=== PATIENT | female | born 1995 | race Caucasian/White ===

== ENCOUNTER 2017-07-18 14:49 | Emergency (ER) | payer OTHER ==
[~2017-07-18] VITALS: Ht 167.6 cm; Wt 62.4 kg
[2017-07-18 15:00] VITALS: TEMP 37.1; Ht 167.6 cm; Wt 62.4 kg
[2017-07-18] MEDS ORDERED: ONDANSETRON INJ 2 MG/ML 2 ML VIAL IV STA (15:17)
[2017-07-18] MEDS ORDERED: SODIUM CHLORIDE 0.9% 1000ML 2,000 ML IV STA (15:17)
[2017-07-18 15:54] LABS: BASO % 0.3 %; BASO ABS # 0.06 K/uL (0-0.2); EOS % 0.9 %; EOS ABS # 0.16 K/uL (0-0.5); HEMATOCRIT 35.1 % (37-47); HEMOGLOBIN 11.1 g/dL (12.0-16.0); IG# 0.06 K/uL (0.00-0.02); LYMPH % 17.4 %; LYMPH ABS # 3.18 K/uL (1.2-3.4); MEAN CELL VOLUME 74.8 fL (80-100); MEAN CORPUSCULAR HEMOGLOBIN 23.7 pg (25-34); MEAN CORPUSCULAR HGB CONC 31.6 g/dl (32-36); MEAN PLATELET VOLUME 10.1 fL (7.4-10.4); MONO % 3.2 %; MONO ABS # 0.59 K/uL (0.11-0.59); NEUT % 77.9 %; NEUT ABS # 14.18 K/uL (1.4-6.5); PLATELET COUNT 334 K/uL (130-400); RED CELL DISTRIBUTION WIDTH CV 14.1 % (11.5-14.5); RED CELL DISTRIBUTION WIDTH SD 38.3 fL (36.4-46.3); WHITE BLOOD COUNT 18.23 K/uL (4.8-10.8)
[2017-07-18] MEDS ORDERED: VNTHFA/IN INH (15:55)
[2017-07-18] MEDS ORDERED: QVRINH40 INH (15:55)
[2017-07-18] MEDS ORDERED: BCPILLS PO (15:55)
[2017-07-18 16:07] LABS: ALBUMIN 4.1 gm/dl (3.4-5.0); CALCIUM 9.5 mg/dl (8.5-10.1); CREATININE 0.81 mg/dl (0.60-1.20); POTASSIUM 3.5 mmol/L (3.5-5.1)
[2017-07-18 16:10] LABS: TOTAL PROTEIN 7.5 gm/dl (6.4-8.2)
[2017-07-18 16:36] VITALS: BP 108/56; PULSE 88; O2SAT 99
[2017-07-18] MEDS ORDERED: ONDA4TAB10 SL (18:03)
--- NOTE | 2017-07-18 18:03 | EMERGENCY ROOM VISIT NOTE ---
History First contact with patient: 15:03 Chief Complaint: VOMITING Stated Complaint: VOMITING, STOMACH PAIN, DEHYDRATED History of Present Illness Patient is a 22-year-old white female who presents emergency department accompanied by her female roommate for evaluation of nausea and vomiting 24 hours. Patient states that she woke up yesterday, was nauseous and vomited multiple times between 10 AM and 4 PM. She states that she woke up from a nap and felt better. She felt well enough to go to a friend's birthday green party last evening where she was able to eat and does admit to drinking some alcohol. She came home and went to bed and woke up at 2:00 this morning acutely vomiting. She has been multiple episodes of clear, watery emesis. She cannot quantify how many times she has thrown up but reports now that she is just dry heaving. She tried sipping on water but was unable to keep it down. She has very slight mid abdominal pain that she rates a 1/10. She has not had any diarrhea. She has cold sweats with waves of nausea but does not feel feverish. She denies any hematemesis. No urinary symptoms. She is on oral contraceptives and her last menstrual period was last week. She traveled to [place] for spring, no recent foreign travel, no antibiotic use recently. She denies any unusual food or water consumption. No sick contacts. Review of Systems Review of systems as per HPI. All other systems reviewed were negative. 10 systems reviewed. Past Medical/Surgical History Medical Problems: (1) Asthma Electronic medical records are reviewed and summarized as above/below. See Problem List. Supplemental history completed by the patient was also reviewed. Social History Smoking Status: Never Smoker Alcohol Use: occasionally Housing Status: lives with roommate Occupation Status: [employer] student Current/Historical Medications Scheduled Beclomethasone Dip (Qvar), 2 PUFF INH DAILY Control Pills ( Control Pills), 1 TAB PO DAILY Scheduled PRN Albuterol Hfa (Ventolin Hfa), 2 PUFFS INH Q6H PRN for BEFORE EXERCISE Ondasetron Odt (Zofran Odt), 4 MG SL Q4 PRN for Nausea or Vomiting Physical Exam Vital Signs Date Time Temp Pulse Resp B/P (MAP) Pulse Ox O2 Delivery O2 Flow Rate FiO2 07/18/17 16:36 88 18 108/56 99 Room Air 07/18/17 15:00 37.1 78 18 118/73 98 Room Air Physical Exam CONSTITUTIONAL: Patient is a pleasant, well-appearing 22-year-old white female who is awake and alert and in no acute distress. EYES: Pupils equal, round, reactive to light and accommodation. EOMs intact without nystagmus. Sclera are anicteric. ENT: Tympanic membranes intact, with normal landmarks. External canals are clear. Oral and nasopharynx are clear. Mucous membranes are moist, no lesions , tongue and gums appear normal. NECK: Supple without lymphadenopathy. No thyromegaly. No meningeal signs. Full active range of motion without discomfort. CARDIOVASCULAR: Regular rate and rhythm, with normal S1 and S2, no murmur or gallop or rub is heard. No carotid bruits auscultated. No JVD. Peripheral pulses easily palpable. RESPIRATORY: Breath sounds equal and clear to auscultation without wheezes, rales, or rhonchi heard. Full and equal chest expansion without accessory muscle use or retractions. ABDOMEN: Bowel sounds are present. Abdomen is soft, scaphoid, mildly tender in the epigastric region to palpation. There is no guarding, rebound or rigidity. There is no pain in the right lower quadrant over McBurney's point. INTEGUMENTARY: No lesions or rash, normal skin turgor. LYMPH: No lymphadenopathy. Medical Decision & Procedures Laboratory Results 07/18/17 15:20 Red Blood Count 4.69, Mean Corpuscular Volume 74.8, Mean Corpuscular Hemoglobin 23.7, Mean Corpuscular Hemoglobin Concent 31.6, Mean Platelet Volume 10.1, Neutrophils (%) (Auto) 77.9, Lymphocytes (%) (Auto) 17.4, Monocytes (%) (Auto) 3.2, Eosinophils (%) (Auto) 0.9, Basophils (%) (Auto) 0.3, Neutrophils # (Auto) 14.18, Lymphocytes # (Auto) 3.18, Monocytes # (Auto) 0.59, Eosinophils # (Auto) 0.16, Basophils # (Auto) 0.06 07/18/17 15:20 Test 07/18/17 15:20 White Blood Count 18.23 K/uL (4.8-10.8) Red Blood Count 4.69 M/uL (4.2-5.4) Hemoglobin 11.1 g/dL (12.0-16.0) Hematocrit 35.1 % (37-47) Mean Corpuscular Volume 74.8 fL (80-100) Mean Corpuscular Hemoglobin 23.7 pg (25-34) Mean Corpuscular Hemoglobin Concent 31.6 g/dl (32-36) Platelet Count 334 K/uL (130-400) Mean Platelet Volume 10.1 fL (7.4-10.4) Neutrophils (%) (Auto) 77.9 % Lymphocytes (%) (Auto) 17.4 % Monocytes (%) (Auto) 3.2 % Eosinophils (%) (Auto) 0.9 % Basophils (%) (Auto) 0.3 % Neutrophils # (Auto) 14.18 K/uL (1.4-6.5) Lymphocytes # (Auto) 3.18 K/uL (1.2-3.4) Monocytes # (Auto) 0.59 K/uL (0.11-0.59) Eosinophils # (Auto) 0.16 K/uL (0-0.5) Basophils # (Auto) 0.06 K/uL (0-0.2) RDW Standard Deviation 38.3 fL (36.4-46.3) RDW Coefficient of Variation 14.1 % (11.5-14.5) Immature Granulocyte % (Auto) 0.3 % Immature Granulocyte # (Auto) 0.06 K/uL (0.00-0.02) Hypochromasia PRESENT Ovalocytes 1+ Anion Gap 10.0 mmol/L (3-11) Est Creatinine Clear Calc Drug Dose 102.8 ml/min Estimated GFR () 120.3 Estimated GFR (Non- 103.8 BUN/Creatinine Ratio 17.4 (10-20) Calcium Level 9.5 mg/dl (8.5-10.1) Total Bilirubin 0.6 mg/dl (0.2-1) Aspartate Amino Transf (AST/SGOT) 16 U/L (15-37) Alanine Aminotransferase (ALT/SGPT) 18 U/L (12-78) Alkaline Phosphatase 46 U/L (45-117) Total Protein 7.5 gm/dl (6.4-8.2) Albumin 4.1 gm/dl (3.4-5.0) Globulin 3.4 gm/dl (2.5-4.0) Albumin/Globulin Ratio 1.2 (0.9-2) Lipase 83 U/L (73-393) Human Chorionic Gonadotropin, Quant < 1 mIU/mL Medications Administered Medications (Trade) Dose Ordered Sig/Celia Route Start Time Stop Time Status Last Admin Dose Admin Sodium Chloride 2,000 ml @ 999 mls/hr Q2H1M STAT IV 07/18/17 15:17 18 17:17 DC 07/18/17 15:25 999 MLS/HR Ondansetron HCl (Zofran Inj) 4 mg NOW STAT IV 07/18/17 15:17 18 15:19 DC 07/18/17 15:25 4 MG ED Course The patient was seen and assessed as above. She has no old records at our facility for review. IV access was obtained and laboratory studies were collected including CBC with differential, CMP, lipase, hCG and urine dip. She was hydrated with a total of 2 L of normal saline solution, and medicated with Zofran 4 mg IV. Laboratory studies noted a white count of 18,200 with left shift. She has a microcytic, hypochromic anemia pattern with an H&H of 11 and 35, platelet count is normal. Electrolytes, renal functions, liver functions and lipase are all within normal limits. HCG is less than 1. The patient was reassessed and made aware of the results of her laboratory studies. She had been able to provide a urine sample which was dipped and noted a large amount of ketones, at this point she still had about 600 cc in the second liter to be administered. She was feeling less nauseous however and was agreeable to a trial of ice chips. I did discuss with her the elevated white blood cell count, certainly this could be related to the suspected viral illness, also due to the stress of the illness and vomiting. Abdominal exam again was completely benign, specifically with no right upper or right lower quadrant tenderness. I did discuss with her the possibility of appendicitis however and advised that if her symptoms persist or if she develops right lower quadrant abdominal pain, she would need to be reexamined. She expressed understanding of this and was agreeable. At this point it was decided that she did not require any further imaging studies. The patient rested comfortably while awaiting the completion of her IV fluids. She was reassessed and again had no further nausea or vomiting after the ice chips. Conservative care measures were discussed. She was provided a prescription for Zofran and instructed to follow a clear liquid diet. Gradually progress the diet as her symptoms allow. She was again counseled that should she develop any localized abdominal pain, particularly right-sided, persistent vomiting or fevers that she would need to be reevaluated, she expressed understanding of this and was agreeable. She was discharged to home with her roommate in good condition. Vital signs were stable at discharge and she rated her pain a 0/10. Differential diagnoses entertained included gastritis, esophagitis, pancreatitis , acute cholecystitis, biliary colic, bowel obstruction, perforation, UTI, pyelonephritis, infectious versus inflammatory colitis, food borne illness, appendicitis, among others. Medical Decision See emergency department course. Medication Reconcilliation Current Medication List: was personally reviewed by me Blood Pressure Screening Patient's blood pressure: Normal blood pressure Blood pressure disposition: Did not require urgent referral Impression Primary Impression: Nausea and vomiting Departure Information Prescriptions Ondasetron Odt (ZOFRAN ODT) 4 Mg Tab 4 MG SL Q4 Y for Nausea or Vomiting, #20 TAB Prov: Yessy Knight PA 07/18/17 Referrals No Doctor, Assigned (PCP) Patient Instructions [facility] Additional Instructions Zofran(odansetron) tablets 4mg: Take one and allow it to dissolve in your mouth every four to six hours as needed for nausea or vomiting. Ibuprofen(Motrin, Advil) may be used for fever or pain. Use 600mg every six hours as needed. Take with food. Avoid using more than 2400mg in a 24 hour period. Do not use 2400mg per day for more than three consecutive days without physician direction. Prolonged inappropriate use can lead to stomach upset or ulcers. (AND/OR) Acetaminophen(Tylenol) may be used for fever or pain. Use 1000mg every six hours as needed. Avoid using more than 4000mg in a 24 hour period. Rest and drink plenty of fluids as tolerated. Slow sips of water or sports drinks are recommended instead of large amounts all at once. Continue current medications. Once your stomach is settled start with a clear liquid diet (jello, soup broth, etc.) and then advance as tolerated. You should avoid full, heavy meals for about 24 hrs from the time your symptoms resolved. Return to the ER for persistent vomiting, fevers, abdominal pain (particularly pain that localizes to the right upper or right lower abdomen), chest pains, difficulty breathing, black or bloody stools, worsening of your condition, or as needed. Follow up with your primary physician in 2-3 days for a recheck of your current condition. Problem Qualifiers Primary Impression: Nausea and vomiting Vomiting type: unspecified Vomiting Intractability: non-intractable Qualified Codes: R11.2 - Nausea with vomiting, unspecified
== END 2017-07-18 18:35 | disposition home or self-care (01) ==
LOC: C.EDB 14:50 → C.EDC 18:35
DX: R11.2 Nausea with vomiting, unspecified (principal); J45.909 Unspecified asthma, uncomplicated; Z79.899 Other long term (current) drug therapy; Z79.3 Long term (current) use of hormonal contraceptives